=== PATIENT | female | born 1940 | race Caucasian/White ===

== ENCOUNTER 2017-08-05 11:30 | Inpatient (IN) | payer MEDICARE ==
[2017-08-05 12:10] VITALS: BMI 35.2
--- OUTSIDE RECORDS SUMMARY | 2017-08-15 05:45 | XMS | Clinical Summary ---
:1940 Author Organization [facility] Address [address] [place] [address] Phone Care Team Providers Name Role Phone , Primary Care Provider Unavailable Allergies Not on File Current Medications Not on file Active Problems Not on file Social History Tobacco Use Types Packs/Day Years Used Date Never Assessed Sex Assigned at Date Recorded Not on file Last Filed Vital Signs Not on file Plan of Treatment Not on file Results Not on filefrom Last 3 Months
[2017-08-15] MEDS ORDERED: Bacitracin Zinc Ointment 30 gm TUBE ONE (06:21)
[2017-08-15] MEDS ORDERED: Thrombin 5000 UNITS/5 ML VIAL ONE (06:21)
[2017-08-15] MEDS ORDERED: Sodium Chloride 0.9% 10 ML ONE ×2 (06:21→06:58)
[2017-08-15] MEDS ORDERED: Vecuronium 10 MG VIAL ONE ×3 (07:00→11:16)
[2017-08-15] MEDS ORDERED: Phenylephrine 10 MG/NS 250 ML 0 ML ONE (07:01)
[2017-08-15] MEDS ORDERED: Albumin 5% 500 ML ONE (07:01)
[2017-08-15] MEDS ORDERED: Midazolam HCl 2 mg/2 ml Vial ONE (07:06)
[2017-08-15] MEDS ORDERED: Fentanyl 100 MCG/2 ML VIAL ONE ×5 (07:21→15:01)
[2017-08-15] MEDS ORDERED: Lidocaine 2% PF 10 ML AMP (For Epidural Use) ONE (07:35)
[2017-08-15] MEDS ORDERED: PHENYLEPHRINE-NS 100 MCG/ML 10 ML SYRINGE ONE (07:35)
[2017-08-15] MEDS ORDERED: Glycopyrrolate 0.2 MG/ML 5 ML SYRINGE ONE (07:35)
[2017-08-15] MEDS ORDERED: Ondansetron HCl/PF 4 MG/2 ML Vial ONE (07:35)
[2017-08-15] MEDS ORDERED: Propofol 200 MG/20 ML VIAL ONE (07:35)
[2017-08-15] MEDS ORDERED: Dexamethasone 20 MG/5 ML VIAL ONE (07:35)
[2017-08-15] MEDS ORDERED: Meperidine HCl/PF 25 MG/ML VIAL SLOW IVP PRN (09:58)
[2017-08-15] MEDS ORDERED: Ondansetron HCl/PF 4 MG/2 ML Vial IVP PRN (09:58)
[2017-08-15] MEDS ORDERED: Morphine Sulfate 2 MG/ML SYRINGE SLOW IVP PRN ×2 (09:58→13:56)
[2017-08-15] MEDS ORDERED: HYDROmorphone 2 MG/ML VIAL SLOW IVP PRN (09:58)
[2017-08-15] MEDS ORDERED: Promethazine HCl 25 MG/ML VIAL IM PRN ×2 (09:58→13:56)
[2017-08-15] MEDS ORDERED: Promethazine HCl 25 MG/ML VIAL SLOW IVP PRN (09:58)
[2017-08-15] MEDS ORDERED: Mag-Al 1200 mg/1200 mg/30 ML UDCUP PO PRN (13:56)
[2017-08-15] MEDS ORDERED: Fleet Enema 133 ML BOT PR PRN (13:56)
[2017-08-15] MEDS ORDERED: HYDROcodone/Acetaminophen 7.5/325 mg Tablet PO PRN (13:56)
[2017-08-15] MEDS ORDERED: Acetaminophen/Codeine 30-300mg Tablet PO PRN (13:56)
[2017-08-15] MEDS ORDERED: Bisacodyl 10 MG SUPP PR PRN (13:56)
[2017-08-15] MEDS ORDERED: Milk Of Magnesia 30 ML UDCUP PO PRN (13:56)
[2017-08-15] MEDS ORDERED: Acetaminophen 650 MG Suppository PR PRN (13:56)
[2017-08-15] MEDS ORDERED: Nitroglycerin 0.4 MG TAB (25 Tab Bottle) SL PRN (13:59)
[2017-08-15] MEDS ORDERED: Fluticasone Propionate Nasal Spray 16 gm Bottle NASAL PRN (13:59)
--- NOTE | 2017-08-15 15:41 | OP ---
DATE OF SURGERY: 08/15/2017 OR: 12. SURGEON: Adam Blanchard M.D. UMBRELLA REPAIRER: Jhony Marc PA-C. 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 POSTPROCEDURE DIAGNOSES: Multilevel cervical stenosis circumferentially with spinal cord compressio n resulting in myelopathy and nerve root compression resulting in radiculopathy. PROCEDURES: 1. Anterior C5-C6 and C6-C7 diskectomies for decompression of the spinal cord and nerve roots. 2. Preparation of the endplates for placement of interbody spacer, C5-C6 and C6-C7, for arthrodesis . 3. Local bone autograft obtained from same incision, allograft, C5-C6 and C6-C7 for fusion. 4. Anterior cervical plate and screw fixation, C5-C6 and C6-C7. 5. Use of operative microscope for microdissection. 6. Subsequent placement of the patient in the prone position for C5-C6 and C6-C7 laminectomies, par tial facetectomies, and foraminotomies. 7. Placement of screw tyler fixation, C5, C6, C7. 8. Posterolateral arthrodesis with local bone autograft obtained from same incision and allograft f or fusion, C5-C6 and C6-C7 bilaterally. PROCEDURE: After informed consent was obtained from the patient, the patient brought to OR 12. Pro per patient pause and identification was carried out. She was placed under excellent general endotr acheal anesthesia and positioned supine on the operating room table. All appropriate points were pa dded. The right anterior oblique mateus that would allow for approach to the C5, C6, C7 was identifie d. This area was sterilely cleansed, prepared, and draped. Proper patient pause and identification was carried out. The wound was then opened with a combination of sharp, monopolar, and blunt disse ction, and we proceeded lateral to the tracheoesophageal bundle and medial to the right carotid haskins th. We identified the prevertebral layer of deep cervical fascia and the C5, C6, C7 segments were e xposed and the longus colli muscles swept laterally. We then turned our attention to retraction. A localization film confirmed our area of interest. We then performed distraction at C5-C6. Microsc ope was then brought into the field for use of microdissection and we removed the disk at C5-C6 with excellent decompression of the common dural tube and the C6 nerve roots. We then placed interbody spacer of appropriate dimension for arthrodesis packed with local bone autograft obtained from same incision and allograft at C5-C6. Distraction was then removed at C5-C6 and placed at C6-C7 and dist raction at C6-C7 occurred and diskectomy was performed there as well with excellent decompression of the common dural tube and bilateral C7 nerve roots. The endplates were prepared and interbody spac er of appropriate dimension was placed at C6-C7 and this interbody spacer was packed with local bone autograft obtained from same incision and allograft at C6-C7. We were satisfied with our placement of the interbody spacer packed with local bone autograft and allograft for C6-C7 for arthrodesis. We then removed the microscope and anterior cervical plate screw fixation, C5, C6, C7 then occurred with final tightening. The wound was then copiously irrigated and closed in anatomic layers and a d rain was placed in the operative cavity. The patient was kept intubated and positioned in the supin e position. While positioned in supine position, Romero carlos was secured to her skull. We then positioned her prone on the operating room table and secured the head and the cervical spine in felix tral position to allow for approach to the posterior cervical segments of C5, C6, and C7. The wound was sterilely cleansed, prepared, and draped. Proper patient pause and identification was carried out. The wound was then opened with a combination of sharp, monopolar, and blunt dissection. We pr oceeded to the C5, C6, C7 segments with sharp monopolar, and blunt dissection; exposure was satisfac tory. We then confirmed our area of interest with fluoroscopy and gross visualization and we perfor med C5, C6, on top of C7 laminectomies, partial facetectomies and foraminotomies. Holes were drille d for the placement of lateral mass screws at C5, C6, C7 and rods were placed, final tightening occu rred. Copious irrigation occurred. Arthrodesis was done over the posterolateral regions with a loc al bone autograft obtained from same incision and allograft at C5, C6, and C7. Copious irrigation a nd hemostasis occurred. The wound was then closed in anatomic layers following the sprinkling of va ncomycin powder. The patient then emerged from anesthesia.
[2017-08-15] MEDS: Sodium Chloride 0.9% 1,000 ML IV SCH (16:26)
[2017-08-15] MEDS: traMADol HCl 50 MG TAB PO PRN (17:39)
[2017-08-15] MEDS: Carvedilol 6.25 MG TAB PO SCH (19:59)
[2017-08-15] MEDS: TROSPIUM 20 MG TABLET PO SCH (20:32)
[2017-08-15] MEDS ORDERED: Chloraseptic Spray 180 ml Bottle PO PRN (22:27)
[2017-08-16] MEDS: Sodium Chloride 0.9% 1,000 ML IV SCH ×2 (00:53→16:05)
[2017-08-16] MEDS: Acetaminophen 325 MG TAB PO PRN ×4 (04:16→21:07)
[2017-08-16] MEDS: tiZANidine HCl 4 MG TAB PO PRN ×3 (05:57→21:06)
[2017-08-16] MEDS ORDERED: GLUCOSAMINE PO SCH (09:00)
[2017-08-16] MEDS ORDERED: CRANBERRY PO SCH (09:00)
[2017-08-16] MEDS ORDERED: D3 PO SCH (09:00)
[2017-08-16] MEDS ORDERED: BOSWELLIA SERRA T PO SCH (09:00)
--- NOTE | 2017-08-16 09:33 | PRG ---
DATE OF SERVICE: 08/16/2017 Ms. Valero is postoperative 1 from anterior and posterior decompression and fusion, both an teriorly and posteriorly. She is doing well this morning considering how extensive her surgery was and how extensive her pathology was as well. She has as expected dysphagia and dysphonia, but is m oving all extremities to command with stable exam compared to preoperatively. Her drain output is 7 0 mL. I am going to leave this in. We will begin to mobilize her today. I am pleased with how wel l she is doing.
[2017-08-16] MEDS: Cholecalciferol (Vitamin D3) 400 UNITS TAB PO SCH (10:58)
[2017-08-16] MEDS: Lactinex Tablet PO SCH (10:59)
[2017-08-16] MEDS: Ubidecarenone 50 MG CAP PO SCH (10:59)
[2017-08-16] MEDS: Ramipril 5 MG CAP PO SCH (10:59)
[2017-08-16] MEDS: Stress 600 With Zinc 1 TAB PO SCH (10:59)
[2017-08-16] MEDS: Isosorbide Mononitrate 20 MG TAB PO SCH (10:59)
[2017-08-16] MEDS: Magnesium Oxide 400 MG TAB PO SCH (11:00)
[2017-08-16] MEDS: Pravastatin Sodium 20 MG TAB PO SCH (11:00)
[2017-08-16] MEDS: Famotidine 20 MG TAB PO SCH (11:01)
[2017-08-16] MEDS: Loratadine 10 MG TAB PO SCH (11:01)
[2017-08-16] MEDS: Carvedilol 6.25 MG TAB PO SCH ×2 (11:01→21:02)
[2017-08-16] MEDS: traMADol HCl 50 MG TAB PO PRN ×3 (11:02→18:30)
[2017-08-16] MEDS: TROSPIUM 20 MG TABLET PO SCH ×2 (13:43→21:03)
[2017-08-17] MEDS: tiZANidine HCl 4 MG TAB PO PRN ×2 (03:46→20:12)
[2017-08-17] MEDS: Sodium Chloride 0.9% 1,000 ML IV SCH ×2 (05:37→19:54)
[2017-08-17] MEDS: Ramipril 5 MG CAP PO SCH (08:40)
[2017-08-17] MEDS: Isosorbide Mononitrate 20 MG TAB PO SCH (08:40)
[2017-08-17] MEDS: traMADol HCl 50 MG TAB PO PRN ×2 (08:41→14:56)
[2017-08-17] MEDS: Carvedilol 6.25 MG TAB PO SCH ×2 (08:41→19:59)
[2017-08-17] MEDS: Stress 600 With Zinc 1 TAB PO SCH (08:46)
[2017-08-17] MEDS: Ubidecarenone 50 MG CAP PO SCH (08:46)
[2017-08-17] MEDS: TROSPIUM 20 MG TABLET PO SCH ×2 (08:46→20:12)
[2017-08-17] MEDS: Cholecalciferol (Vitamin D3) 400 UNITS TAB PO SCH (08:47)
[2017-08-17] MEDS: Pravastatin Sodium 20 MG TAB PO SCH ×2 (08:47→19:59)
[2017-08-17] MEDS: Loratadine 10 MG TAB PO SCH (08:47)
[2017-08-17] MEDS: Magnesium Oxide 400 MG TAB PO SCH (08:47)
[2017-08-17] MEDS: Lactinex Tablet PO SCH (08:47)
[2017-08-17] MEDS: Famotidine 20 MG TAB PO SCH (08:47)
--- NOTE | 2017-08-17 14:15 | PRG ---
DATE OF SERVICE: 08/17/2017 Jhony Marc PA-C dictating for Dr. Adam Blanchard. SUBJECTIVE: Ms. Valero is now postoperative day #2, having undergone an anterior cervical diskec yogesh and fusion at C5 through C7 with posterior laminectomy and fusion at C5, C6, and C7 levels. Th e patient states that overall she is improved from yesterday. She does have some continued difficul ty with swallowing; however, states this is improved and she is requesting a soft diet. She does co ntinue to have some dry mouth, but otherwise states that she has no arm pain. She states changes in position cause significant amount of posterior neck pain, but states that this is improving. She b elieves that the function in her hands is improving, especially into the bilateral hands. She remai natan at neurologic baseline with good strength in the bilateral upper extremities. Her collar is in place. Her drain output was 80 mL in the last 24 hours and would like to keep this today. We hope that the patient may be ready for discharge as early as tomorrow with home health depending on her c ontinued progress. She will continue to walk as tolerated. I will order soft diet and check back o n her tomorrow. Please call with any changes in patient's neurologic status.
[2017-08-18] MEDS: Sodium Chloride 0.9% 1,000 ML IV SCH ×2 (07:27→20:53)
[2017-08-18] MEDS: Lactinex Tablet PO SCH (08:17)
[2017-08-18] MEDS: Ramipril 5 MG CAP PO SCH (08:17)
[2017-08-18] MEDS: TROSPIUM 20 MG TABLET PO SCH ×2 (08:17→20:50)
[2017-08-18] MEDS: Isosorbide Mononitrate 20 MG TAB PO SCH (08:17)
[2017-08-18] MEDS: tiZANidine HCl 4 MG TAB PO PRN ×3 (08:18→21:04)
[2017-08-18] MEDS: Carvedilol 6.25 MG TAB PO SCH ×2 (08:18→20:50)
[2017-08-18] MEDS: traMADol HCl 50 MG TAB PO PRN ×3 (08:18→21:02)
[2017-08-18] MEDS: Famotidine 20 MG TAB PO SCH (08:19)
[2017-08-18] MEDS: Magnesium Oxide 400 MG TAB PO SCH (09:29)
[2017-08-18] MEDS: Stress 600 With Zinc 1 TAB PO SCH (09:29)
[2017-08-18] MEDS: Loratadine 10 MG TAB PO SCH (09:29)
[2017-08-18] MEDS: Ubidecarenone 50 MG CAP PO SCH (09:29)
[2017-08-18] MEDS: Cholecalciferol (Vitamin D3) 400 UNITS TAB PO SCH (09:29)
--- NOTE | 2017-08-18 11:43 | PRG ---
DATE OF SERVICE: 08/18/2017 Ms. Valero is postoperative day 3 following anterior, posterior decompression and fusion for circ umferential spinal cord compression. We will remove her anterior drain. She continues to notice im provement in regard to her decreased right arm pain and is mobilizing. She has good strength in her upper and lower extremities. I think she needs one more day in the hospital. We will plan for to dismiss her tomorrow after she has had time to work with physical therapy once home health is arrang ed.
[2017-08-18] MEDS: Pravastatin Sodium 20 MG TAB PO SCH (20:49)
[2017-08-19] MEDS: Carvedilol 6.25 MG TAB PO SCH (08:16)
[2017-08-19] MEDS: Famotidine 20 MG TAB PO SCH (08:17)
[2017-08-19] MEDS: Cholecalciferol (Vitamin D3) 400 UNITS TAB PO SCH (08:17)
[2017-08-19] MEDS: Lactinex Tablet PO SCH (08:18)
[2017-08-19] MEDS: Ramipril 5 MG CAP PO SCH (08:18)
[2017-08-19] MEDS: Loratadine 10 MG TAB PO SCH (08:18)
[2017-08-19] MEDS: Magnesium Oxide 400 MG TAB PO SCH (08:18)
[2017-08-19] MEDS: Isosorbide Mononitrate 20 MG TAB PO SCH (08:18)
[2017-08-19] MEDS: traMADol HCl 50 MG TAB PO PRN (08:19)
[2017-08-19] MEDS: Ubidecarenone 50 MG CAP PO SCH (08:19)
[2017-08-19] MEDS: Stress 600 With Zinc 1 TAB PO SCH (08:19)
[2017-08-19] MEDS: tiZANidine HCl 4 MG TAB PO PRN (08:19)
[2017-08-19] MEDS: TROSPIUM 20 MG TABLET PO SCH (08:29)
--- NOTE | 2017-08-19 09:06 | PRG ---
DATE OF SERVICE: 08/19/2017 This is a subsequent inpatient progress note. Ms. Valero is now postoperative day #5, having und ergone an anterior cervical diskectomy and fusion and posterior laminectomy and instrumentation with fusion C5-7. The patient is doing very well at this time. Her swallowing difficulties are minimal and she is able to swallow pills. She remains on a clear liquid diet. She states that her hand an d upper extremity symptoms in regards to pain and numbness and tingling have almost completely resol barney with the exception of some numbness and tingling to the bilateral fingertips in all the fingers. She has been up walking with PT and states that posterior neck pain has also improved over the pas t several days. She would like to go home. The patient remains at neurologic baseline without any deficits. Her incisions have been uncovered and they are clean, dry, and intact with anticipated wo und healing. At this time, the patient is stable for discharge home. We will set up home health pe r the patient request. We will continue postoperative activity restrictions. The patient will foll ow up in outpatient clinic as scheduled and understands to call the office with any concerns prior t o her next followup appointment. The patient is pleased with her outcome postoperatively. The woun d is healing well.
[2017-08-19 17:57] VITALS: BP 107/69; TEMP 98.3
== END 2017-08-19 10:20 | disposition home health service (06) | DRG 473 ==
LOC: SURG A 08-15 05:43 → SJJU 08-15 15:31
PROVIDERS: ADMIT Surgery; ATTEND Surgery
PROC: 0RG20AJ Fusion of 2 or more Cervical Vertebral Joints with Interbody Fusion Device, Posterior Approach, Anterior Column, Open Approach (ICD-10-PCS; principal; 2017-08-15)
DX: M47.12 Other spondylosis with myelopathy, cervical region (principal); I10 Essential (primary) hypertension; M47.22 Other spondylosis with radiculopathy, cervical region; M48.02 Spinal stenosis, cervical region; E78.5 Hyperlipidemia, unspecified; M19.90 Unspecified osteoarthritis, unspecified site; E66.9 Obesity, unspecified; Z68.35 Body mass index [BMI] 35.0-35.9, adult; G47.30 Sleep apnea, unspecified
CPT/HCPCS: 76001; A4216; C1713; C1768; G8978-GP-CK; G8979-GP-CJ; G8987-GO-CK; G8988-GO-CI; J0131; J1100; J1170; J2001; J2250; J2270; J2405; J2704; J3010; J3370; J3490; P9045

== ENCOUNTER 2017-09-30 13:59 | Outpatient (CLI) | payer MEDICARE ==
--- NOTE | 2017-09-30 18:04 | RAD ---
FIVE VIEWS OF THE CERVICAL SPINE: 09/30/2017 COMPARISON: None. HISTORY: Cervical radiculopathy, neck surgery July 2017. 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 There are degenerative changes at the C1-2 articulation with interspace narrowing and subchondral sclerosis. There is prominent multilevel mid-cervical spine facet and uncovertebral osteophyte formation, left greater than right, most prominent at C3-4. There is anterior diskectomy and fusion hardware present at C5-6/C6-7. There is posterior fusion hardware including bilateral pedicle screws and vertically oriented interl ocking rods involving C4, C5, and C6 levels. No evidence for hardware failure. No prevertebral sof t tissue swelling. There is C4-5 disk space narrowing with degenerative endplate change and anterior osteophyte formati on. Bilateral laminectomy changes are noted at C4, C5, and C6. Cervical vertebral body height and alignment appears normal on frontal and lateral imaging. No prev ertebral soft tissue swelling is evident. The dens appears intact on the open mouth odontoid view a nd Fuch's view. C1-2 articulation appears normal. IMPRESSION: Extensive multilevel prior postoperative change. No acute osseous abnormality. POS: [facility]
== END 2017-09-30 14:00 | disposition home or self-care (01) ==
LOC: TBSIIMAG 13:59
PROVIDERS: ATTEND Surgery
DX: M54.12 Radiculopathy, cervical region (principal)
CPT/HCPCS: 72040

== ENCOUNTER 2019-12-12 11:02 | Inpatient (IN) | payer MEDICARE ==
[2019-12-12] MEDS ORDERED: Iopamidol-370 76% 500 ML 1 ML ONE (11:09)
[2019-12-12] MEDS ORDERED: cefTRIAXone\\ROCEPHIN 2 GM VIAL ONE (11:34)
[2019-12-12 11:39] LABS: #Lymphocytes 2.3 thou/uL (1.20-3.40); #Monocytes 1.1 thou/uL (0.11-0.59); #Neutrophils 13.4 thou/uL (1.40-6.50); %Basophils 0.2 % (0.0-1.0); %Eosinophils 0.3 % (0.0-10.0); %Lymphocytes 13.8 % (21.0-51.0); %Monocytes 6.4 % (0.0-10.0); %Neutrophils 79.2 % (42.0-75.0); Hemoglobin 10.9 g/dL (12.0-16.0); Mean Corpuscular HGB CONC 35.5 g/dL (32.0-36.0); Mean Corpuscular Hemoglobin 33.6 pg (27.0-31.0); Mean Corpuscular Volume 94.6 fL (78.0-98.0); Mean Platelet Volume 6.8 fL (7.4-10.4); Platelet Count 121 thou/uL (130-400); RBC Distribution Width 11.5 % (11.5-14.5); Red Blood Cell (RBC) Count 3.23 mill/uL (4.20-5.40); White Blood Cell (WBC) Count 16.9 thou/uL (4.8-10.8)
[2019-12-12 11:45] LABS: Bacteria/HPF 2+ HPF (None Seen); Bilirubin Negative (Negative); Blood, Urine Trace (Negative); Clarity Turbid (Clear); Glucose, Urine (Dipstick) 50 mg/dL (Negative); Leukocyte 500 Leu/uL (Negative); Nitrite 1+ (Negative); Protein, Urine (Dipstick) 10 mg/dL (Neg-Trace); Squamous Epithelial 0-3 HPF (0-3); Urobilinogen Normal mg/dL (Less than 2); WBC/HPF 21-50 HPF (0-3)
[2019-12-12 11:51] LABS: Amphetamine Not Detected (NotDetected); Barbiturates Screen Not Detected (NotDetected); Benzodiazepine Screen Not Detected (NotDetected); Cocaine Metabolite Screen Not Detected (NotDetected); Medtox Control Line Valid? VALID (VALID); Medtox Reader # READER 4; Methadone Not Detected (NotDetected); Methamphetamine Not Detected (NotDetected); Opiate Screen Not Detected (NotDetected); Oxycodone Screen Not Detected (NotDetected); Phencyclidine (PCP) Not Detected (NotDetected); THC/Cannabinoid Screen Not Detected (NotDetected); Tricyclic Screen Not Detected (NotDetected)
[2019-12-12 11:51] LABS: INR-International Normal Ratio 1.2; Prothrombin Time 14.7 SEC (12.0-14.7)
[2019-12-12] MEDS ORDERED: Cefepime 2 GM VIAL ONE (11:51)
[2019-12-12 11:53] LABS: PTT 19.7 SEC (22.9-36.1)
--- NOTE | 2019-12-12 11:53 | RAD ---
EXAM: Single view of the chest HISTORY: Altered mental status and respiratory distress COMPARISON: 12/08/2019 FINDINGS: Single view of the chest shows a normal sized cardiomediastinal silhouette. There is no faheem dence of consolidation, mass, or pleural effusion. Postsurgical changes are seen in the spine. IMPRESSION: No evidence of acute cardiopulmonary disease
[2019-12-12 11:58] LABS: Acetaminophen Less than 6.0 mcg/mL (10.0-30.0); Alcohol Less than 10 mg/dL (Less than 10); Salicylate Less than 8.0 mg/dL (15.0-30.0)
[2019-12-12 12:21] LABS: ALT (SGPT) 12 U/L (8-55); AST (SGOT) 12 U/L (5-34); Alkaline Phosphatase 38 U/L (40-110); Anion Gap 12 mmol/L (10-20); BUN (Urea Nitrogen) 29 mg/dL (9.8-20.1); Bilirubin, Total 0.7 mg/dL (0.2-1.2); Calc. Creatinine Clearance 0 mL/min (70-130); Calcium 7.9 mg/dL (7.8-10.44); Carbon Dioxide 24 mmol/L (23-31); Chloride 100 mmol/L (98-107); Estimated GFR-MDRD Greater than 90; Globulin 1.9 g/dL (2.4-3.5); Glucose 142 mg/dL (83-110); Potassium 3.6 mmol/L (3.5-5.1); Protein, Total 4.9 g/dL (6.0-8.3); Sodium 132 mmol/L (136-145)
--- NOTE | 2019-12-12 12:59 | CT ---
EXAM: CT brain without contrast HISTORY: Altered mental status. Recent brain tumor resection COMPARISON: None TECHNIQUE: Multiple contiguous axial images were obtained and a CT of the brain without contrast. FINDINGS: Postsurgical changes are seen in the right calvarium. There is a heterogeneous appearance o f the right parieto-occipital lobe. There is a 4.3 cm masslike region in the right parietal lobe with surrounding vasogenic edema. There is thickening of the dura just beneath the craniotomy site. T here is no evidence of hydrocephalus, intracranial hemorrhage, or significant extra-axial fluid collection. The calvarium and overlying soft tissues are unremarkable. The visualized paranasal sinuses and masto id air cells are well aerated. IMPRESSION: Postsurgical changes of the right calvarium with likely residual mass in the right pariet al lobe.
--- NOTE | 2019-12-12 13:39 | PDOC.FPRHP ---
- History of Present Illness Chief Complaint: AMS History of Present Illness: 79YOF with a PMH significant for a recent surgical resection of a glioblastoma on Nov 27, who presented from [facility] for hypoxia & labile BPs noted there by the staff this AM. Per the her vitals were noted to be abnormal this AM and the rehab staff stated they could not handle it so they sent her to the ER for further evaluation. Upon arrival pt had her supplemental oxygen rapidly weaned to room air with normal stats. Her blood pressure remained stable. Denies any recent sx including chills, fever, cough, abdominal pain. Pt has been working with PT/OT at rehab - states she has not been progressing well and has not regained function of her lower extremities to ambulate since her operation. also concerned about patient's depression. Says she often talks about the end of life. Patient and deny any attempts to end her life resulting in her abnormal vitals this AM. ED Course: Cefepime & Rocephin IV - Allergies/Adverse Reactions Allergies Allergy/AdvReac Type Severity Reaction Status Date / Time No Known Allergies Allergy Verified 12/12/19 15:42 - Home Medications Medication Instructions Recorded Confirmed Type Aspirin [Aspir-Low] 162 mg PO DAILY 08/05/17 12/12/19 History Carvedilol 1 tab PO BID 08/05/17 12/12/19 History Fluticasone Propionate [Flonase 1 puff NASAL DAILY 08/05/17 12/12/19 History Nasal [place]] Loratadine [Claritin] 1 tab PO DAILY 08/05/17 12/12/19 History Citalopram [CeleXA] 10 mg PO DAILY 12/12/19 12/12/19 History Dexamethasone 4 mg PO DAILY 12/12/19 12/12/19 History Furosemide 40 mg PO DAILY 12/12/19 12/12/19 History Glucosamine/D3/Boswellia Judith 1 each PO DAILY 12/12/19 12/12/19 History [Osteo Bi-Flex Tablet] Insulin Detemir [Levemir] 8 units SQ QAM 12/12/19 12/12/19 History Lisinopril 40 mg PO DAILY 12/12/19 12/12/19 History Methylphenidate HCl 5 mg PO DAILY 12/12/19 12/12/19 History Multivitamin With Minerals 1 tablet PO DAILY 12/12/19 12/12/19 History [Multivitamins with Minerals] Polyethylene Glycol 3350 [Miralax] 17 gm PO DAILY 12/12/19 12/12/19 History Pravastatin Sodium [Pravachol] 10 mg PO HS 12/12/19 12/12/19 History Ranitidine HCl 150 mg PO DAILY 12/12/19 12/12/19 History Ranolazine [Ranolazine ER] 1,000 mg PO BID 12/12/19 12/12/19 History Sodium Chloride 2 gm PO BID 12/12/19 12/12/19 History Ubidecarenone [Coenzyme Q10] 100 mg PO DAILY 12/12/19 12/12/19 History levETIRAcetam [Levetiracetam] 1,500 mg PO BID 12/12/19 12/12/19 History - History PMHx: Hx of glioblastoma s/p recent resection, depression PSHx: Resection of glioblastoma (11/27/19 w/ Dr. Blanchard @ [facility]) FHx: Non contributory Social: Lives at home with . Has been at [facility] rehab for the last week. No tobacco, EtOH or drugs. PCP: Dr. Lauren Summers - Review of Systems General: reports: weight/appetite/sleep changes, fatigue. denies: fever/chills Eyes: reports: other (no scotomas). denies: vision changes ENT: denies: nasal congestion, rhinorrhea Respiratory: denies: cough, shortness of breath Cardiovascular: denies: chest pain, edema Gastrointestinal: reports: nausea. denies: vomiting, diarrhea, abdominal pain Genitourinary: reports: other (hematuria). denies: dysuria Skin: denies: rashes, lesions Musculoskeletal: denies: pain, arthritis/arthralgias Neurological: reports: weakness. denies: numbness Psychological: reports: depression. denies: anxiety - Vital signs BP: 126/67 HR: 71 RR: 13 Tmax: Pox: 99% on RA Wt: 85kg - Physical Exam Constitutional: NAD, awake, alert and oriented -Constitutional: Lays with her eyes closed most of exam, opens spontaneously HEENT: PERRLA, EOMI, MMM Neck: supple, FROM Chest: no-tender to palpation Heart: RRR, normal S1/S2, no murmurs/rubs/gallops, pulses present Lungs: CTAB, no respiratory distress, good air movement, no rales/rhonchi, no wheezing Abdomen: soft, bowel sounds present Musculoskeletal: normal structure, normal tone, ROM grossly normal -Neurological: 2/5 strength in lower extremities, able to move toes, normal sensation Skin: no rash/lesions, capillary refill <2 seconds Heme/Lymphatic: no unusual bruising or bleeding, no purpura Psychiatric: normal mood and affect, good judgment and insight, intact recent and remote memory FMR H&P: Results - Labs Result Diagrams: 12/12/19 18:51 12/12/19 11:20 Lab results: WBC 16.9 thou/uL (4.8-10.8) H 12/12/19 11:19 Hgb 10.9 g/dL (12.0-16.0) L 12/12/19 11:19 Hct 30.6 % (36.0-47.0) L 12/12/19 11:19 MCV 94.6 fL (78.0-98.0) 12/12/19 11:19 Plt Count 121 thou/uL (130-400) L 12/12/19 11:19 Neutrophils % 79.2 % (42.0-75.0) H 12/12/19 11:19 Sodium 132 mmol/L (136-145) L 12/12/19 11:20 Potassium 3.6 mmol/L (3.5-5.1) 12/12/19 11:20 Chloride 100 mmol/L (98-107) 12/12/19 11:20 Carbon Dioxide 24 mmol/L (23-31) 12/12/19 11:20 BUN 29 mg/dL (9.8-20.1) H 12/12/19 11:20 Creatinine 0.58 mg/dL (0.6-1.1) L 12/12/19 11:20 Glucose 142 mg/dL (83-110) H 12/12/19 11:20 Lactic Acid 2.1 mmol/L (0.5-2.2) 12/12/19 11:19 Calcium 7.9 mg/dL (7.8-10.44) 12/12/19 11:20 Total Bilirubin 0.7 mg/dL (0.2-1.2) 12/12/19 11:20 AST 12 U/L (5-34) 12/12/19 11:20 ALT 12 U/L (8-55) 12/12/19 11:20 Alkaline Phosphatase 38 U/L (40-110) L 12/12/19 11:20 Ammonia 24 umol/L (18-72) 12/12/19 11:19 B-Natriuretic Peptide 19.6 pg/mL (0-100) 12/12/19 11:20 Serum Total Protein 4.9 g/dL (6.0-8.3) L 12/12/19 11:20 Albumin 3.0 g/dL (3.4-4.8) L 12/12/19 11:20 Urine Ketones Negative mg/dL (Negative) 12/12/19 11:18 Urine Blood Trace (Negative) A 12/12/19 11:18 Urine Nitrite 1+ (Negative) A 12/12/19 11:18 Ur Leukocyte Esterase 500 Nithya/uL (Negative) A 12/12/19 11:18 Urine RBC 4-6 HPF (0-3) A 12/12/19 11:18 Urine WBC 21-50 HPF (0-3) A 12/12/19 11:18 Ur Squamous Epith Cells 0-3 HPF (0-3) 12/12/19 11:18 Urine Bacteria 2+ HPF (None Seen) A 12/12/19 11:18 - EKG Interpretation EK lead EKG shows normal sinus rhythm, Rate (beats per minute): 64, Conduction normal, ST, T waves, [place] normal, nonspecific ST and T wave abnormality. - Radiology Interpretation CT scan - head Status: report reviewed by me (Postsurgical changes of the right calvarium with likely residual mass in the right pariet al lobe.) Chest x-ray Status: report reviewed by me (No evidence of acute cardiopulmonary disease) FMR H&P: A/P - Problem List (1) Metastatic cancer Current Visit: Yes Status: Acute Code(s): C79.9 - SECONDARY MALIGNANT NEOPLASM OF UNSPECIFIED SITE (2) Urinary tract infection associated with catheterization of urinary tract Current Visit: Yes Status: Acute Code(s): T83.511A - I/I REACT D/T INDWELLING URETHRAL CATHETER, INIT; N39.0 - URINARY TRACT INFECTION, SITE NOT SPECIFIED (3) Sepsis Current Visit: Yes Status: Acute Code(s): A41.9 - SEPSIS, UNSPECIFIED ORGANISM (4) Pulmonary embolism Current Visit: Yes Status: Acute Code(s): I26.99 - OTHER PULMONARY EMBOLISM WITHOUT ACUTE COR PULMONALE (5) Lung nodule seen on imaging study Current Visit: Yes Status: Acute Code(s): R91.1 - SOLITARY PULMONARY NODULE (6) Depression Current Visit: Yes Status: Acute Code(s): F32.9 - MAJOR DEPRESSIVE DISORDER , SINGLE EPISODE, UNSPECIFIED (7) Weakness Current Visit: Yes Status: Acute Code(s): R53.1 - WEAKNESS (8) Hyponatremia Current Visit: Yes Status: Acute Code(s): E87.1 - HYPO-OSMOLALITY AND HYPONATREMIA - Plan Sepsis 2/2 CAUTI - Urine collected yesterday showed G- rods - Urine today again dirty - Treated with cefepime and rocephin in ED - transitioned to rocephin 1g daily - Strict I/O - Amaya replaced yesterday Pulmonary Embolism - 2/2 malignant embolism vs post surgical complication - Neurosurgery consulted: initiating therapeutic heparin per protocol - stable cardiopulmonary status currently - Admit to CCU Brain Mass - Glioblastoma resection on Nov 27, noted to be malignant per pt - Residual LE weakness and mental status changes per - Scheduled to follow up with onc for possible radiation, yet to be determined - Neurosurgery consulted: Head CT noting new mass, discussing new findings w/ pt and Lung Mass - Seen on CTA chest - Previously noted, pt and aware - Outpt PET scan scheduled for next week Hyponatremia - Likely 2/2 to poor PO intake - Encourage increased PO, consider dietary consult Depression - Increased post operatively - Will continue recently started citalopram - Palliative care consulted Likely Hypertension/CHF - did not note hx of these but suspected based on home rx - Will resume home rx for now and confirm medical hx IVF: SL VTE: Therapeutic heparin Diet: Regular Code: Full Dispo: Admit inpt to CCU for heparin drip and IV abx. ELOS >48hr. PCP: Dr. Aguilar FMR H&P: Upper Level - Pertinent history 79YOF with a PMH significant for a recent surgical resection of a glioblastoma on Nov 27, who presented from [facility] rehab for hypoxia & labile BPs noted there by the staff this AM. Per the her vitals were noted to be abnormal this AM and the rehab staff stated they could not handle it so they sent her to the ER for further evaluation. Upon arrival pt had her supplemental oxygen rapidly weaned to room air with normal stats. Her blood pressure remained stable. Denies any recent sx including chills, fever, cough, abdominal pain. Pt has been working with PT/OT at rehab - states she has not been progressing well and has not regained function of her lower extremities to ambulate since her operation. also concerned about patient's depression. Says she often talks about the end of life. Patient and deny any attempts to end her life resulting in her abnormal vitals this AM. - Pertinent findings CXR: NAF Head CT: CTA w/ & w/o contrast: small B/L pulmonary emboli w/ a small, spiculated left upper lung nodule noted WBC 16.9 Hgb 10.9 Plts 121 lactate 2.1 UA: dirty REVIEW OF SYSTEMS: Gen: no fever, chills, or sweats Neuro: no numbness/tingling, no weakness, denies headache Eyes: no visual changes ENT: no hearing changes, no sore throat, no runny nose Resp: no cough, no SOB, no wheeze Card: denies chest pain, no palpitations GI: no N/V/D, no abdominal pain : no dysuria, no hematuria MSK: no myalgias, no joint pain/stiffness Heme: no easy bruising/bleeding, no blood thinners Skin: no rash, no erythema Vitals: BP: 126/67 HR: 71 RR: 13 Tmax: 100.4F Pox: 99% on RA Wt: 87kg PHYSICAL EXAMINATION: General: NAD, alert and oriented x3 HEENT: PERRLA, EOMI, normal sclera, oropharynx without erythema but scrapable white plaques noted all over oral cavity Neck: Supple. Full ROM. Heart/Cardiovascular System: RRR, Cap refill < 3 seconds, no rub, no murmur Lungs/Respiratory System: clear to auscultation bilaterally. No increased work of breathing. Room air. Abdomen/Gastro-Intestinal System: no abdominal tenderness, normal bowel sounds, no masses, no organomegaly Extremities: Warm extremities. No cyanosis or edema. Neuro: 5/5 strength in B/L UEs w/ . CN 2-12 grossly intact Psychiatry: Awake, Alert and cooperative with exam Skin: No lesions, rashes, or ulcers noted Musculoskeletal: moved all extremities - Plan Date/Time: 12/12/19 1338 I, Pretty Murguia, have evaluated this patient and agree with findings/plan as outlined by dental intern resident. Pertinent changes/additions are listed here. 79YOF with a PMH significant for a recent surgical resection of a glioblastoma on Nov 27, who presented from [facility] rehab for reported hypoxia & labile BPs who was found to be septic 2/2 a CAUTI with B/L pulmonary emboli. Sepsis 2/2 CAUTI - Urine collected yesterday at rehab + for GNRs. Cx pending. Repeat urine & blood Cxs also obtained on presentation as UA was dirty & patient had a WBC of 16.9 with a Tmax of 100.4F. Was given IV Cefepime & Rocephin. - Will continue IV Rocephin only pending Cx results & sensitivities. - Will continue to trend WBC. - Tylenol PRN for fever/pain Pulmonary Embolism - Multiple risk factors including malignancy & immobilization since recent brain surgery. Confirmed on CTA obtained in ED. - Neurosurgery consulted & initiated therapeutic heparin per protocol w/ Q6H coags. Transitioning to CCU per their recs as well but patient is actually stable from a cardiopulmonary status currently. Hx Glioblastome s/p resection w/ new brain Mass - s/p Glioblastoma resection on 11/27/19 which was noted to be malignant per patient and her . - Per was scheduled to follow up with onc for possible radiation as an outpatient but recent surgery has delayed this. - Neurosurgery consulted from the ED and on board. Head CT noted a new mass & NS discussed these new findings w/ pt and . Appreciate involvement in patient's care. - Palliative care consulted to see patient & tomorrow if possible. Left upper Lung nodule - Patient and aware of this prior to admission. Seen again today on CTA chest done in ED. - Most likely malignant as described as being spiculated. DDX includes new primary malignancy vs. metastatic dz. Will consider oncology consult but will await further recs from NS and meet with family and palliative care first. Oral candidiasis - Noted on PE. Will start on Nystatin SSW QID. Hyponatremia - Na 132 on admission. Likely 2/2 to poor PO intake and/or SIADH associated with recent neurosurgery. - Will encourage increased PO intake & consider dietary consult in the AM. - Resume PO Na Chloride per NS. - Continue to trend. Normocytic Anemia - Hgb of ~10 on admission. Will continue to trend. Thrombocytopenia: - Plts low at 121 on admission. Will continue to trend, pancho. in setting of starting heparin to monitor for HIIT. Depression - Will continue recently started citalopram. - Palliative care consulted by NS. Suspected Hypertension - Assumed based on [facility] paperwork & home meds. Will resume for now and review history and confirm all medical problems in the AM. Supsected CHF - See plan above. IVFs: SL ABx: Rocephin (12/12) VTE PPX: Therapeutic heparin GI PPX: Protonix Diet: Regular Code: Full Dispo: Will admit to the CCU per NS recs for heparin drip and IV abx for PE & CAUTI. ELOS >48hr pending clinical course. PCP: Dr. Aguilar Addendum - Attending - Attending Attestation Date/Time: 12/12/192102 I personally evaluated the patient at 1815 and discussed the management with Dr. Fernandez/Blade. I agree with the History, Examination, Assessment and Plan documented above with any addition or exceptions noted below. Patient with an episode of hypotension, tachypnea and hypoxia resulting in tranfer from inpt rehab to ER. CAUTI- Rocephin and urine cx Small bilateral PEs- to ICU for monitoring due to recent neurosurg and need for anticoag- O2 to keep sats >92% glioblastoma- appears aggressive with a new lesion per NS- appreciate their input Will need to discuss prognosis and goals of care with patient.
[2019-12-12 14:30] LABS: Lactic Acid 1.7 mmol/L (0.5-2.2)
[2019-12-12] MEDS ORDERED: Acetaminophen 325 MG TAB PO PRN (15:42)
[2019-12-12] MEDS ORDERED: Ondansetron ODT 4 MG TAB PO PRN (15:42)
[2019-12-12] MEDS ORDERED: Dexamethasone 10 MG in Sodium Chloride 0.9% 50 ML IVPB SCH (17:00)
[2019-12-12] MEDS ORDERED: Pantoprazole 40 MG VIAL IVP SCH (17:00)
--- NOTE | 2019-12-12 18:08 | CT ---
CTA OF THE CHEST WITH CONTRAST: 12/12/19 COMPARISON: None. HISTORY: Postop brain surgery. High blood pressure and decreased oxygen saturation. TECHNIQUE: Multiple contiguous axial images were obtained in a CT of the chest with contrast per pulmonary embol ism protocol. 3D oblique MIP reformats and direct coronal reformats were performed. FINDINGS: Small filling defects are seen in the bilateral pulmonary arteries consistent with small bilateral pu lmonary emboli. It is most prominent in the right lower lobe. The heart is normal in size without foc al cardiac abnormality. No shift of the interventricular septum is seen. No hilar or mediastinal lymp hadenopathy is seen. There is a spiculated 1.5 cm nodule in the left upper lobe. No pneumothorax or pleural effusion are s een. Atelectasis is seen in the lung bases. Degenerative changes are seen in the spine. The visualized subdiaphragmatic structures are unremarkab le. The patient is status post cholecystectomy. The chest wall soft tissues are unremarkable. IMPRESSION: 1. Small bilateral pulmonary emboli. 2. Spiculated left upper lobe nodule. A PET CT is recommended to evaluate for hypermetabolic act ivity. The patient's nurse is notified of the finding at 5:55 p.m. on 12/12/19.
--- NOTE | 2019-12-12 18:13 | CON ---
DATE OF CONSULTATION: 12/12/2019 This is a 50-minute initial patient evaluation of which greater than 50% of the exam was spent in counseling and coordinating the patient's care remainder of the exam was spent in care of review of patient's medical records and appropriate imaging studies. CHIEF COMPLAINT: Fatigue and malaise with hypoxic event with newly found right occipital lobe brain tumor. HISTORY OF PRESENT ILLNESS: Ms. 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 The patient had hyponatremia postoperatively but overall had done well in regard to her surgery. She had previously been [facility]. I have been in close contact with the patient's son and who are very active in her care and they noticed that the patient has had a several day history of progression of significant fatigue. The patient is on 1500 mg of Keppra twice a day to prevent seizures that she is on a very high risk for seizure-like activity secondary to her temporal mass resection. Apparently, earlier today around 07:30, the patient had episode of low blood pressure and tachypnea, and eventually was brought to [facility] from [facility] for these reasons. A medical workup has been ongoing and the patient has been found to have urinary tract infection. A head CT was obtained that shows no intracranial hemorrhage, however, does show newly found 4 cm right occipital lobe lesion likely consistent with GBM. This is a new lesion and does not represent residual tumor, but rather new tumor growth given the aggressive pathology. I should note that the patient's craniotomy and subsequent postoperative care was at [facility] in [place]. The patient was initiated on Lovenox postoperatively given high risk of DVT secondary to brain tumor pathology. CTA of the chest with and without contrast, PE protocol has been ordered secondary to the patient's tachypnea and hypotension. PHYSICAL EXAMINATION: The patient is resting comfortably. Her GCS is 14 as she is intermittently confused. She opens her eyes easily and does appear to recognize me as we have been in close contact given her recent brain surgery. She follows commands in all extremities, although it is much slower to move the left lower extremity and this may be weaker compared to her immediate postoperative exam, however, she has always had some weakness on to the left, this was improving postoperatively. Her pupils are equal, round, and reactive, though the left is more briskly reactive than the right has sluggishly reactive. She does not appear to have any horizontal nystagmus on exam. She believes it is Saturday or Saturday, though she understands it is 2019. She believes she is still at [facility]. Her cranial incision is healing well with minimal scabbing there are ida still present and it appears as though it is healing well. IMPRESSION DIAGNOSES: 1. Status post right temporal craniotomy 11/27/2019 at [facility], now with new evidence of new tumor in the right occipital lobe. 2. Hypoxia, tachypnea, and low blood pressure, concern for pulmonary embolism. PLAN: At this time, I have discussed the patient's case and imaging with Dr. Blanchard. We will follow up on the patient's CTA of the chest results. This newly found occipital lobe lesion is very concerning. It does prove to the aggression of what the patient's pathology in regard to her GBM tumor. I have let the patient know her new diagnosis as well as I spoken at great length with her via phone as he is already left the hospital. At this time, there is not a role for neurosurgical intervention including new tumor resection and we did discuss this. The patient's does understand. The patient also understands. I should say in the patient's own words, "is it okay if I just give up?" and I have let her know that this is something that we can greatly discuss with her family and we will get palliative care involved. I have also let the patient's know that she feels this way and he states that she has been feeling this way for the past several days. Certainly, this very disappointing news. Plan to have a family meeting tomorrow once the patient's has returned. Medical colleagues have graciously admitted the patient and they will continue care with the patient's medical workup. We will likely remove the patient's cranial sutures tomorrow as well. Please call with any changes in the patient's neurologic status, otherwise, the patient is neurologically stable and no intermittently confused. She does have slight amount of hyponatremia which she suffered from Will nicho Loza, although at 132 her sodium level much improved as she was around 122 pre and immediately postoperatively. I have again consulted Palliative Care, but we will follow up on the patient. I should note that her is very appreciative of her phone call in care. Again, we will attempt to contact him tomorrow. Job ID: [id number]
[2019-12-12] MEDS ORDERED: Heparin 10,000 UNITS/ 10 ML VIAL SLOW IVP SCH (18:30)
[2019-12-12] MEDS ORDERED: Heparin 25,000 units/D5W 500 ML IVPB SCH (18:30)
[2019-12-12 19:01] LABS: Hemoglobin 10.4 g/dL (12.0-16.0); Platelet Count 117 thou/uL (130-400)
[2019-12-12 19:09] LABS: INR-International Normal Ratio 1.2; PTT 25.2 SEC (22.9-36.1); Prothrombin Time 14.9 SEC (12.0-14.7)
[2019-12-12] MEDS ORDERED: hydrALAZINE 20 MG/ML VIAL SLOW IVP PRN (21:12)
[2019-12-12] MEDS: Carvedilol 6.25 MG TAB PO SCH (21:43)
[2019-12-12] MEDS: levETIRAcetam 500 MG TAB PO SCH (21:43)
[2019-12-12] MEDS: Pravastatin Sodium 20 MG TAB PO SCH (21:43)
[2019-12-12] MEDS: cefTRIAXone\\ROCEPHIN 1 GM in Sodium Chloride 0.9% 100 ML IVPB SCH (21:44)
[2019-12-12] MEDS: Nystatin 500,000 UNITS/5 ML UDCUP SSW SCH (21:44)
[2019-12-12] MEDS: Sodium Chloride 1 GM TAB PO SCH (21:46)
[2019-12-13] MEDS: Dexamethasone 4 MG in Sodium Chloride 0.9% 50 ML IVPB SCH ×4 (00:50→18:35)
[2019-12-13 02:06] LABS: #Lymphocytes 0.8 thou/uL (1.20-3.40); #Monocytes 0.3 thou/uL (0.11-0.59); #Neutrophils 12.5 thou/uL (1.40-6.50); %Basophils 0.2 % (0.0-1.0); %Eosinophils 0.2 % (0.0-10.0); %Lymphocytes 5.7 % (21.0-51.0); %Monocytes 1.9 % (0.0-10.0); %Neutrophils 91.9 % (42.0-75.0); Hemoglobin 10.2 g/dL (12.0-16.0); Mean Corpuscular HGB CONC 34.8 g/dL (32.0-36.0); Mean Corpuscular Hemoglobin 32.6 pg (27.0-31.0); Mean Corpuscular Volume 93.7 fL (78.0-98.0); Mean Platelet Volume 6.8 fL (7.4-10.4); Platelet Count 120 thou/uL (130-400); RBC Distribution Width 11.6 % (11.5-14.5); Red Blood Cell (RBC) Count 3.12 mill/uL (4.20-5.40); White Blood Cell (WBC) Count 13.6 thou/uL (4.8-10.8)
[2019-12-13 02:18] LABS: PTT 183.3 SEC (22.9-36.1)
[2019-12-13 02:20] LABS: Anion Gap 11 mmol/L (10-20); BUN (Urea Nitrogen) 27 mg/dL (9.8-20.1); Calc. Creatinine Clearance 116 mL/min (70-130); Calcium 8.1 mg/dL (7.8-10.44); Carbon Dioxide 24 mmol/L (23-31); Chloride 102 mmol/L (98-107); Estimated GFR-MDRD Greater than 90; Glucose 184 mg/dL (83-110); Sodium 133 mmol/L (136-145)
--- NOTE | 2019-12-13 05:46 | PDOC.FM ---
- Subjective Subjective: Pt remains fairly unchanged from yesterday. Overnight her oxygen saturations were WNL, blood pressures stable. She denies shortness of breath. Otherwise pt denies pain, remains with L sided weakness. Pt states over the last 2 weeks she has "wanted to give up". - Objective Vital Signs & Weight: Vital Signs (12 hours) Temp BP Pulse Ox 12/13/19 03:00 98 F 12/13/19 00:00 98.4 F 12/12/19 21:43 123/62 12/12/19 20:00 98.4 F 96 12/12/19 18:30 100 Weight Weight 87.3 kg Most Recent Monitor Data Heart Rate from ECG 63 NIBP 129/70 NIBP BP-Mean 89 Respiration from ECG 12 SpO2 98 I&O: 12/11/19 12/12/19 12/13/19 06:59 06:59 06:59 Intake Total 150 Output Total 605 Balance -455 Result Diagrams: 12/13/19 01:50 12/13/19 01:50 Phys Exam - Physical Examination Constitutional: NAD HEENT: PERRLA, moist MMs Respiratory: no wheezing, clear to auscultation bilateral Cardiovascular: RRR, no significant murmur Gastrointestinal: soft, non-tender Musculoskeletal: no edema, pulses present Strenght 4/5 in L extremities otherwise normal exam Psychiatric: A&O x 3 Deviation from normal: Flat affect lucid thinking, thought process Dx/Plan (1) Depression Code(s): F32.9 - MAJOR DEPRESSIVE DISORDER, SINGLE EPISODE, UNSPECIFIED Status : Acute (2) Hyponatremia Code(s): E87.1 - HYPO-OSMOLALITY AND HYPONATREMIA Status: Acute (3) Lung nodule seen on imaging study Code(s): R91.1 - SOLITARY PULMONARY NODULE Status: Acute (4) Metastatic cancer Code(s): C79.9 - SECONDARY MALIGNANT NEOPLASM OF UNSPECIFIED SITE Status: Acute (5) Pulmonary embolism Code(s): I26.99 - OTHER PULMONARY EMBOLISM WITHOUT ACUTE COR PULMONALE Status : Acute (6) Sepsis Code(s): A41.9 - SEPSIS, UNSPECIFIED ORGANISM Status: Acute (7) Urinary tract infection associated with catheterization of urinary tract Code(s): T83.511A - I/I REACT D/T INDWELLING URETHRAL CATHETER, INIT; N39.0 - URINARY TRACT INFECTION, SITE NOT SPECIFIED Status: Acute (8) Weakness Code(s): R53.1 - WEAKNESS Status: Acute - Plan Plan: CAUTI Sepsis - resolved - Urine collected yesterday showed G- rods - Urine today again dirty - Treated with cefepime and rocephin in ED - transitioned to rocephin 1g daily - Strict I/O - Amaya replaced yesterday Pulmonary Embolism - 2/2 malignant embolism vs post surgical complication. Appears pt failed lovenox in the setting of prophylaxis. - Neurosurgery consulted: continue therapeutic heparin per protocol, repeat PTT' s pending - stable cardiopulmonary status currently - Admit to CCU Brain Mass - Glioblastoma resection on Nov 27, noted to be malignant per pt - Residual LE weakness and mental status changes per - Scheduled to follow up with onc for possible radiation, yet to be determined - Neurosurgery consulted: Head CT noting new mass. NS had discussion with family about mass, at this time surgery not indicated. NS will have meeting with family concerning mass, further care and pt's wishes. Palliative is on board as well. Lung Mass - Seen on CTA chest - Previously noted, pt and aware - Outpt PET scan scheduled for next week Hyponatremia - Likely 2/2 to poor PO intake - Encourage increased PO, consider dietary consult - NS states at [employer] her Na was 122, much improvement from prior. Depression - Increased post operatively - Will continue recently started citalopram - Palliative care consulted Likely Hypertension/CHF - did not note hx of these but suspected based on home rx - Will resume home rx for now and confirm medical hx IVF: SL VTE: Therapeutic heparin Diet: Regular Code: Full Dispo: Admit inpt to CCU for heparin drip and IV abx. ELOS >48hr. PCP: Dr. Aguilar Addendum - Attending - Attending Attestation Date/Time: 12/13/19 1302 I personally evaluated the patient at 0800 and discussed the management with Dr. Bashir I agree with the History, Examination, Assessment and Plan documented above with any addition or exceptions noted below. Glioblastoma, highly aggressive small B PE- on heparin gtt Gram neg UTI with possible sepsis- on Rocephin Discussed with patient her goals of care and she desires comfort/hospice care. But she wants to talk to her family before we proceed with CM consult for hospice evaluation.
--- NOTE | 2019-12-13 07:12 | CT ---
PRELIMINARY REPORT/[facility]/AFTER HOURS PROCEDURE CT HEAD WITHOUT INTRAVENOUS CONTRAST: CLINICAL HISTORY: F/U [facility] TECHNIQUE: Axial computed tomography images of the head/brain without intravenous contrast. COMPARISON: CT\TX\SR - CT BRAIN WO CON - 12/12/2019 12:50 PM [employer] V[employer]OR FINDINGS: BRAIN: Overall unchanged heterogeneous appearance of the right parieto-occipital and posterior tempor al lobes status post recent surgery. Unchanged mass-like density centered within the medial right occ ipital lobe measuring up to 4 cm, with surrounding vasogenic edema. Some suggestion of subarachnoid hemorrhage within the sulci along the inferior aspect of the right occipital lobe, unchanged. Unchan ged dural thickening underlying the craniotomy, without evidence of increasing or new subdural hemorr dee. No foci of new hemorrhage from prior. No midline shift or significant mass-effect or signific ant change in the intracranial structures from recent comparison. VENTRICLES: Stable size of the ventricles. Preserved basal cisterns. Similar sulcal effacement of th e right parieto-occipital lobes, likely post surgical swelling. ORBITS: The orbits are unremarkable. SINUSES AND MASTOIDS: Polypoid mucosal thickening versus mucus retention cysts within the lower maxil nalini sinuses. The mastoid air cells are clear. SOFT TISSUES: Overlying the right craniotomy, there are skin closure ida. There are discrete sup erficial fluid collection. BONES: Stable postsurgical changes from right-sided craniotomy. IMPRESSION: Overall, no significant change in intracranial findings from short interval comparison, without evide nce of significant increasing mass-effect, new or progressive intracranial hemorrhage. Stable findin gs as detailed. ELECTRONICALLY SIGNED BY: Kaleb Gary MD Dec 13, 2019 4:39:48 AM [employer] VENDOR This report is intended for review by the ordering physician only, in accordance of law. If you recei ve this report in error, please call [facility] at [phone]. FINAL REPORT EMERGENT AFTER HOURS CT BRAIN WITHOUT CONTRAST: COMPARISON: 12/12/2019 FINDINGS/IMPRESSION: I agree with the findings and impression given in the preliminary report per the [facility] bebeto crandall. Stable exam. CODE QA
[2019-12-13] MEDS ORDERED: INSULIN DETEMIR 8 UNIT SQ SCH (09:00)
[2019-12-13] MEDS ORDERED: Non-Formulary Item 1 EACH (Ranitidine Hcl [Ranitidine Hcl] 150 MG) PO SCH (09:00)
[2019-12-13] MEDS ORDERED: Glucosamine/D3/Boswellia Serra [Osteo Bi-Flex Tablet] PO SCH (09:00)
[2019-12-13] MEDS: Lisinopril 20 MG TAB PO SCH (09:59)
[2019-12-13] MEDS: Carvedilol 6.25 MG TAB PO SCH ×2 (09:59→21:00)
[2019-12-13] MEDS: levETIRAcetam 500 MG TAB PO SCH ×2 (09:59→21:00)
[2019-12-13] MEDS: Insulin Glargine 8 UNITS in Pre-Filled Syringe 1 EACH SC SCH (10:25)
[2019-12-13] MEDS: Citalopram 10 MG TAB PO SCH (10:29)
[2019-12-13] MEDS: Furosemide 40 MG TAB PO SCH (10:29)
[2019-12-13] MEDS: Fluticasone Propionate Nasal Spray 16 gm Bottle NASAL SCH (10:29)
[2019-12-13] MEDS: Polyethylene Glycol 3350 17 GM Packet PO SCH (10:30)
[2019-12-13] MEDS: Pantoprazole 40 MG VIAL IVP SCH (10:30)
[2019-12-13] MEDS: Multivitamin W/ Minerals 1 TAB PO SCH (10:30)
[2019-12-13] MEDS: Nystatin 500,000 UNITS/5 ML UDCUP SSW SCH ×3 (10:30→22:53)
[2019-12-13] MEDS: Loratadine 10 MG TAB PO SCH (10:30)
[2019-12-13] MEDS: Ubidecarenone 50 MG CAP PO SCH (10:31)
[2019-12-13] MEDS: Sodium Chloride 1 GM TAB PO SCH ×2 (10:31→22:53)
--- NOTE | 2019-12-13 12:38 | PRG ---
DATE OF SERVICE: 12/13/2019 Ms. Valero was unfortunately readmitted for hypoxemia, hypotension, and failure to thrive. CTA of the chest demonstrates bilateral segmental pulmonary emboli. We have started her on intravenous heparin without a bolus. Her PTT this morning is 62. Our goal is going to be 50-70 and likely eventually 70-80. Head CT yesterday and today is negative for bleed, but unfortunately she has increased edema and a new glioblastoma multifocal lesion in the right parietal region, this is remote from where I had just taken out the other one via a 6 cm right temporal lobectomy just 2 weeks ago. Neurologically, she is alert. She is moving all extremities, but she admittedly appears as if she is ready to not fight this anymore. It is truly unfortunate as we obtained an excellent resection with her temporal lobectomy just 2 weeks ago, but this is a highly malignant process. She and her family understand. She also tells me that she really does not want to continue to fight it and wants to pursue comfort care measures likely, but she will discuss with her family. At this point, we will continue heparin and Decadron, but there is no role for any further surgical treatment and obviously no role for adjuvant therapy. Her wound is otherwise healing well. Job ID: [id number]
[2019-12-13 13:09] LABS: PTT 176.2 SEC (22.9-36.1)
--- NOTE | 2019-12-13 16:21 | PDOC.EVN ---
Event Note - Event Note Event Note: Mrs. Valero, , and 3 sons met today to further discuss goals of care. She has not wavered in her decision to stop all care including treatment for malignancy and pulmonary embolisms. I spoke with her family in length concerning palliative care and hospice. Ultimately, her decision is to pursue in hospice and her family eventually accepted this as the plan of care in support of their , mother. At this time will place consultation for inpatient hospice. Pierce Bashir, 12/13/19
--- NOTE | 2019-12-13 16:23 | CON ---
DATE OF CONSULTATION: 12/13/2019 TIME SPENT: This was 50 minutes of time, of that time greater than 50% spent with the patient and/or the patient's unit in the hospital. REASON FOR CONSULTATION: Pulmonary embolism. HISTORY OF PRESENT ILLNESS: This is a 79-year-old female, who had a recent resection for a glioblastoma multiforme. She was sent to [facility] where she has been rehabilitating. She developed shortness of breath and hypoxia yesterday. She was sent to the ER here. She had CT pulmonary angiogram which showed bilateral small pulmonary emboli. Additionally, the tumor has come back. The patient says that she wants hospice care and does not want anything done. PAST MEDICAL HISTORY: 1. Glioblastoma. 2. Depression. PAST SURGICAL HISTORY: Glioblastoma resection. FAMILY HISTORY: Unremarkable. SOCIAL HISTORY: Nonsmoker. Does not consume alcohol. Does not use illicit drugs. Lives near [place]. MEDICATIONS: 1. Aspirin. 2. Carvedilol. 3. Fluticasone. 4. Claritin. 5. Celexa. 6. Dexamethasone. 7. Furosemide. 8. Insulin. 9. Lisinopril. 10. Methylphenidate. 11. Pravastatin. 12. Ranitidine. 13. Ranolazine. 14. Coenzyme Q10. 15. Levetiracetam. REVIEW OF SYSTEMS: Remarkable for headache, lethargy, shortness of breath. PHYSICAL EXAMINATION: VITAL SIGNS: Pulse 72, blood pressure 140/76, O2 saturation 94%, respiratory rate 13. HEENT: Unremarkable. NECK: No adenopathy or JVD. LUNGS: Clear anteriorly. CARDIOVASCULAR: S1 and S2. Regular. ABDOMEN: Soft. EXTREMITIES: No edema. LABORATORY DATA: White blood cell count 13.6, hematocrit 29.2, platelet count 120. Sodium 133, potassium 4, chloride 102, CO2 of 24, BUN 27, creatinine 0.5, glucose 184. IMAGING STUDIES: I reviewed the CT scan personally. She is also noted to have elevated white blood cell count in her urine. ASSESSMENT: 1. Pulmonary embolism. 2. Glioblastoma multiforme, now inoperable. RECOMMENDATIONS: This is a very difficult situation. The patient basically wants to go on hospice care. I think one can make the argument that it is not even necessary to treat the pulmonary embolism as the patient's prognosis from the brain tumor is horrible. She also runs a risk of bleeding from the anticoagulant. Her life span is so short, so I do not think an IVC filter would be indicated either. I would recommend not treating this and just making her comfortable. Job ID: [id number]
[2019-12-13] MEDS: Pravastatin Sodium 20 MG TAB PO SCH (21:01)
[2019-12-13] MEDS: cefTRIAXone\\ROCEPHIN 1 GM in Sodium Chloride 0.9% 100 ML IVPB SCH (21:07)
[2019-12-14] MEDS: Dexamethasone 4 MG in Sodium Chloride 0.9% 50 ML IVPB SCH ×5 (00:24→23:46)
--- NOTE | 2019-12-14 04:44 | PDOC.FM ---
- Subjective Subjective: Patient was resting comfortably in bed at the time of evaluation. She denied any acute overnight events, and denied CP or SOB specifically. The current plan of care was discussed, to include ongoing coordination with Case Management and Palliative Care and eventual placement in In-Patient Hospice. Her primary goals today are "to rest and stay warm." - Objective Vital Signs & Weight: Vital Signs (12 hours) Temp BP Pulse Ox 12/14/19 00:00 98.8 F 12/13/19 21:00 99.2 F 137/72 12/13/19 20:00 94 L 12/13/19 19:04 94 L Weight Weight 87.3 kg Most Recent Monitor Data Heart Rate from ECG 68 NIBP 115/58 NIBP BP-Mean 77 Respiration from ECG 17 SpO2 94 I&O: 12/12/19 12/13/19 12/14/19 06:59 06:59 06:59 Intake Total 559 555 Output Total 720 1200 Balance -161 -645 Result Diagrams: 12/13/19 01:50 12/13/19 01:50 Phys Exam - Physical Examination Constitutional: NAD HEENT: moist MMs, oral pharynx no lesions Neck: no JVD, supple Respiratory: no wheezing, no rales, no rhonchi, clear to auscultation bilateral Cardiovascular: RRR, no significant murmur, no rub Gastrointestinal: soft, non-tender, no distention, positive bowel sounds Musculoskeletal: no edema, pulses present Neurological: non-focal Psychiatric: normal affect, A&O x 3 Dx/Plan - Plan Plan: 79 y/o female with a PMH significant for recent GBM resection who presents with Hypoxia and Hypotension. Sepsis - resolved - UCx: Schroeder-sensitive Gm(-) Rods - s/p Cefepime and Rocephin in ED - transitioned to Ceftriaxone 1g daily - Strict I/O - s/p Amaya Replacement - straw colored urine noted during evaluation Pulmonary Embolism - 2/2 Malignant Embolism vs Post Surgical Complication - appears to have failed prophylactic Lovenox - Neurosurgery Consulted: Recommended Therapeutic Heparin per protocol, since DC 'd based on patient's wishes - Cardiopulmonary status appears stable at this time Brain Mass - Glioblastoma resection on Nov 27, noted to be malignant per pt - Residual LE weakness and mental status changes per - Scheduled to follow up with onc for possible radiation, yet to be determined - Neurosurgery Consulted: Head CT notes new mass, non-operable. Lung Mass - Seen on CTA Chest - Previously noted, patient and aware - Outpatient PET scan scheduled for next week Hyponatremia, resolved - Na: 135 on 12/14/19 - Likely 2/2 to poor PO intake - Encouraged increased PO, consider dietary consult Depression - Increased post operatively - Will continue recently started citalopram - Palliative care consulted Likely Hypertension/CHF - did not note hx of these but suspected based on home rx - Will resume home rx for now and confirm medical hx IVF: SL VTE: None Diet: Regular Code: Full - Will Investigate w/ Family Dispo: Patient currently stable on the ICU. Continue IV ABx as per above and consider transition to PO prior to transfer to In-Patient Hospice. Coordinate with Case Management and Palliative Care as required. Expected LOS < 48 Addendum - Attending - Attending Attestation Date/Time: 12/14/19 2013 I personally evaluated the patient and discussed the management with Dr. Toro. I agree with the History, Examination, Assessment and Plan documented above with any addition or exceptions noted below. Patient reiterated to me this morning that she wants hospice care. Hospice will eval patient this afternoon. Will try to de-escalate unnecessary meds, statin, etc. F/u with family meeting this afternoon.
--- NOTE | 2019-12-14 08:51 | PRG ---
DATE OF SERVICE: 12/14/2019 SUBJECTIVE: She is comfortable, just complains of being cold. OBJECTIVE: VITAL SIGNS: Temperature 98.7, pulse 67, blood pressure 119/70, O2 saturation 95%. HEENT: Unremarkable. NECK: No adenopathy or JVD. CHEST: Clear. CARDIAC: S1, S2. Regular. ABDOMEN: Soft. ASSESSMENT: 1. Pulmonary embolism. 2. Glioblastoma multiforme. 3. Probable metastasis to the lung. PLAN: Comfort measures. Anticoagulation has been stopped. There is no necessity treating the pulmonary embolism or working up the lung tumor further with the PET scan. Hospice care is indicated. No further recommendations. We will sign off. Job ID: [id number]
[2019-12-14] MEDS: Sodium Chloride 1 GM TAB PO SCH ×2 (09:00→21:10)
[2019-12-14] MEDS: Multivitamin W/ Minerals 1 TAB PO SCH (09:00)
[2019-12-14] MEDS: Nystatin 500,000 UNITS/5 ML UDCUP SSW SCH ×4 (09:00→21:12)
[2019-12-14] MEDS: Polyethylene Glycol 3350 17 GM Packet PO SCH (09:00)
[2019-12-14] MEDS: Carvedilol 6.25 MG TAB PO SCH ×2 (09:00→21:08)
[2019-12-14] MEDS: Citalopram 10 MG TAB PO SCH (09:00)
[2019-12-14] MEDS: Fluticasone Propionate Nasal Spray 16 gm Bottle NASAL SCH (09:00)
[2019-12-14] MEDS: Loratadine 10 MG TAB PO SCH (09:00)
[2019-12-14] MEDS: Lisinopril 20 MG TAB PO SCH (09:00)
[2019-12-14] MEDS: Ubidecarenone 50 MG CAP PO SCH (09:00)
[2019-12-14] MEDS: Insulin Glargine 8 UNITS in Pre-Filled Syringe 1 EACH SC SCH (10:22)
[2019-12-14] MEDS: Pantoprazole 40 MG VIAL IVP SCH (10:23)
[2019-12-14] MEDS: levETIRAcetam 500 MG TAB PO SCH ×2 (10:41→21:10)
[2019-12-14] MEDS: Furosemide 40 MG TAB PO SCH (10:42)
--- NOTE | 2019-12-14 12:42 | PDOC.EVN ---
Event Note - Event Note Event Note: On 12/14/2019 at 1230, a discussion was held between the [facility] [place] - Dr. Grupo Toro - and the patient, her and her son, about her long-term goals of care. The patient stated that she was "ready to " and that she wished to begin discontinuing multiple aspects of her medication regimen. The benefits of hospice care we discussed at length, and the patient's expressed continued desire for the patient to receive in-patient hospice care. Initially, the patient's stated that the patient wished to remain in [facility], but after discussing further became open to the idea of transferring to an in-patient facility due to the unknown length of stay required. Expect to reengage with all stakeholders about pathway forward following Hospice evaluation currently scheduled for later this afternoon.
--- NOTE | 2019-12-14 15:48 | PRG ---
DATE OF SERVICE: 12/14/2019 This is Jhony Marc PA-C dictating a report for Adam Blanchard MD. Postoperative recheck Ms. Valero is now more than two weeks postop having undergone right temporal craniotomy for tumor resection consistent with GBM. Tumor unfortunately has been so aggressive that she has a new lesion in the right occipital lobe. We had a long discussion with the patient and her family and they also had a long discussion with our family medicine colleagues. So, the patient would like to transition to comfort care and inpatient hospice. Yesterday, her heparin was stopped and again she is transitioning to comfort care. On physical examination, the patient appears to be fatigued, but she awakens easily. She is minimally verbal. She follows commands in all 4 extremities. We have removed her cranial ida. At this point, we will do as the patient and family wishes and our medical colleagues are helping as well as Palliative Care are helping to transition the patient to hospice. We will follow along. Job ID: [id number]
[2019-12-14 18:15] VITALS: BMI 33.0
[2019-12-14] MEDS: Pravastatin Sodium 20 MG TAB PO SCH (21:08)
[2019-12-14] MEDS: cefTRIAXone\\ROCEPHIN 1 GM in Sodium Chloride 0.9% 100 ML IVPB SCH (22:39)
--- NOTE | 2019-12-15 05:08 | PDOC.FM ---
- Subjective Subjective: Patient was resting comfortably in her hospital bed at the time of evaluation - her family was not present. She denied any acute overnight events, aside from feeling slightly cold. Her current plan of care was discussed, and the option of potentially being DC'd to a correction with hospice care was discussed since she did not meet in-patient hospice requirements or [facility] hospice requirements. She was amenable to the idea, but wanted to discuss further with her family. - Objective Vital Signs & Weight: Vital Signs (12 hours) Temp Pulse Resp BP BP Pulse Ox 12/15/19 03:59 99.1 F 72 16 146/67 H 93 L 12/14/19 23:49 98.5 F 72 16 118/62 93 L 12/14/19 21:08 136/72 12/14/19 20:00 98.8 F 77 16 136/72 96 Weight Admit Weight 87.09 kg Weight 87.3 kg Most Recent Monitor Data Heart Rate from ECG 97 NIBP 114/73 NIBP BP-Mean 86 Respiration from ECG 20 SpO2 91 I&O: 12/13/19 12/14/19 12/15/19 06:59 06:59 06:59 Intake Total 559 695 633 Output Total 720 1335 1150 Balance -161 -640 -517 Result Diagrams: 12/13/19 01:50 12/13/19 01:50 Phys Exam - Physical Examination Constitutional: NAD HEENT: moist MMs, sclera anicteric, oral pharynx no lesions Neck: supple, full ROM Respiratory: no wheezing, no rales, no rhonchi, clear to auscultation bilateral Cardiovascular: RRR, no significant murmur, no rub Gastrointestinal: soft, non-tender, no distention Musculoskeletal: no edema, pulses present Neurological: non-focal Dx/Plan - Plan Plan: 79 y/o female with a PMH significant for recent GBM resection who presents with Hypoxia and Hypotension. Sepsis 2/2 to CAUTI - UCx: Schroeder-sensitive Gm(-) Rods - s/p Cefepime and Rocephin in ED - transitioned to Ceftriaxone 1g daily - will treat for 7 - 14 days - Strict I/O - s/p Amaya Replacement - consider changing to We[employer] Bag for patient comfort Pulmonary Embolism - 2/2 Malignant Embolism vs Post Surgical Complication - appears to have failed prophylactic Lovenox - Neurosurgery Consulted: Recommended Therapeutic Heparin per protocol, since DC 'd based on patient's wishes - Cardiopulmonary status appears stable at this time w/o evidence of respiratory compromise Brain Mass - Glioblastoma resection on Nov 27, noted to be malignant per Patient - Residual LE weakness and mental status changes, per - Neurosurgery Consulted: Head CT notes new mass - non-operable Lung Mass - Seen on CTA Chest - Previously noted, patient and aware - Outpatient PET scan scheduled for next week - since cancelled Hyponatremia, resolved - Na: 135 on 12/14/19 - Likely 2/2 to poor PO intake - Encouraged increased PO, consider dietary consult - NaCl 1 gm PO BID - will consider DC Depression - Increased post operatively - No evidence of SI or HI based on nursing reports - Will continue recently started Citalopram - Palliative care consulted Likely Hypertension/CHF - did not note hx of these but suspected based on home medications - Will resume select home medications for now in order to promote patient comfort IVF: SL VTE: None Diet: Regular - Patient currently not Eating Code: DNR - Will Confirm Documentation w/ Nursing Staff Dispo: Patient currently stable on the [place] [facility] but does not meeting criteria for Inpatient Hospice of [facility] Hospice - does not wish to take patient "home to ." Will continue IV ABx as per above and consider transition to PO. Will continue to adjust medication regimen based on patients wishes and seek reevaluation for In-Patient Hospice in 24-48H. Coordinate with Case Management and Palliative Care as required. Expected LOS < 48 Addendum - Attending - Attending Attestation Date/Time: 12/15/19 9738 I personally evaluated the patient and discussed the management with Dr. Toro. I agree with the History, Examination, Assessment and Plan documented above with any addition or exceptions noted below. We had a long discussion with the patient's and son this morning. The states "nobody wants her," in regards to her being denied for inpatient hospice services. I discussed what the qualifications were for this and that she did not meet them at this time. He reiterates he does not want to take her home. We also discussed correction vs swing bed and the cost that can be incurred with these options. He voiced his frustration with the situation. Case management has been in contact with [facility] for an assisted living room that is affordable and that the patient can receive hospice care. They will present this option to the patient.
[2019-12-15] MEDS: Dexamethasone 4 MG in Sodium Chloride 0.9% 50 ML IVPB SCH ×2 (05:32→11:10)
--- NOTE | 2019-12-15 08:54 | PRG ---
DATE OF SERVICE: 12/15/2019 This is Jhony Marc PA-C dictating a report for Adam Blanchard MD. Ms. Valero is hospital day #3 having been diagnosed with a new right occipital lobe brain tumor. Decision was made to transfer the patient to comfort care and inpatient hospice. Neurologically, the patient remains largely nonverbal. She denies headache. She states she is warm enough today. She follows commands in all extremities and again is largely nonverbal but will answer yes or no questions. She prefers to keep her eyes closed for the exam. At this point, care has been withdraw in regard to her pulmonary embolism. She remains on steroids. Neurosurgery will intermittently follow the patient, may transition to inpatient hospice or home with hospice care, whatever is appropriate. Job ID: [id number]
[2019-12-15] MEDS: Carvedilol 6.25 MG TAB PO SCH ×2 (08:57→21:04)
[2019-12-15] MEDS: Citalopram 10 MG TAB PO SCH (08:57)
[2019-12-15] MEDS: Insulin Glargine 8 UNITS in Pre-Filled Syringe 1 EACH SC SCH (08:58)
[2019-12-15] MEDS: Furosemide 40 MG TAB PO SCH (08:58)
[2019-12-15] MEDS: levETIRAcetam 500 MG TAB PO SCH ×2 (08:59→21:07)
[2019-12-15] MEDS: Lisinopril 20 MG TAB PO SCH (08:59)
[2019-12-15] MEDS: Multivitamin W/ Minerals 1 TAB PO SCH (09:00)
[2019-12-15] MEDS: Loratadine 10 MG TAB PO SCH (09:00)
[2019-12-15] MEDS: Pantoprazole 40 MG VIAL IVP SCH (09:01)
[2019-12-15] MEDS: Polyethylene Glycol 3350 17 GM Packet PO SCH (09:01)
[2019-12-15] MEDS: Sodium Chloride 1 GM TAB PO SCH ×2 (09:11→21:05)
[2019-12-15] MEDS: Ubidecarenone 50 MG CAP PO SCH (09:12)
[2019-12-15] MEDS: Nystatin 500,000 UNITS/5 ML UDCUP SSW SCH ×4 (09:12→21:09)
[2019-12-15] MEDS: Fluticasone Propionate Nasal Spray 16 gm Bottle NASAL SCH (10:56)
[2019-12-15] MEDS: Dexamethasone 4 MG TAB PO SCH (17:00)
[2019-12-15] MEDS: Pravastatin Sodium 20 MG TAB PO SCH (21:05)
[2019-12-15] MEDS: cefTRIAXone\\ROCEPHIN 1 GM in Sodium Chloride 0.9% 100 ML IVPB SCH (21:08)
[2019-12-15] MEDS ORDERED: Dextrose 50% Abboject 50 ML SYRINGE SLOW IVP PRN (22:11)
[2019-12-15] MEDS ORDERED: Dextrose 5% in Water 1,000 ML IV PRN (22:11)
[2019-12-15] MEDS: HumaLOG 300 UNITS/3 ML VIAL SC PRN (22:31)
[2019-12-16] MEDS: Dexamethasone 4 MG TAB PO SCH ×3 (00:03→12:37)
--- NOTE | 2019-12-16 05:13 | PDOC.FM ---
- Subjective Subjective: Patient was resting comfortably in her bed at the time of evaluation. She denied being in any pain or experiencing any SOB, and stated that she felt warm enough with additional blankets in her hospital room. Her plan of care was discussed, with a transfer to [facility] under the care of [facility] likely within the next 24H. Patient was amenable to this plan and did not have any additional questions or concerns. - Objective Vital Signs & Weight: Vital Signs (12 hours) Temp Pulse Resp BP BP Pulse Ox 12/15/19 21:04 129/73 12/15/19 19:17 98.8 F 88 16 129/78 93 L Weight Admit Weight 87.09 kg Weight 87.3 kg Most Recent Monitor Data Heart Rate from ECG 97 NIBP 114/73 NIBP BP-Mean 86 Respiration from ECG 20 SpO2 91 I&O: 12/14/19 12/15/19 12/16/19 06:59 06:59 06:59 Intake Total 695 793 910 Output Total 1335 1550 1550 Balance -640 -757 -640 Result Diagrams: 12/13/19 01:50 12/13/19 01:50 Phys Exam - Physical Examination Constitutional: NAD HEENT: moist MMs, oral pharynx no lesions Neck: supple, full ROM Respiratory: no wheezing, no rales, no rhonchi, clear to auscultation bilateral Cardiovascular: RRR, no significant murmur, no rub Gastrointestinal: soft, non-tender, no distention Neurological: non-focal, normal sensation Psychiatric: normal affect, A&O x 3 Skin: no rash Dx/Plan - Plan Plan: 79 y/o female with a PMH significant for recent GBM resection who presents with Hypoxia and Hypotension. Sepsis 2/2 to CAUTI - UCx: Schroeder-sensitive Gm(-) Rods - s/p Cefepime and Rocephin in ED - transitioned to Ceftriaxone 1g daily - will treat for 7 - 14 days - Plan to transition to PO Bactrim DS 1 Tab BID for 7 Days prior to transfer - Strict I/O - can DC prior to transfer - s/p Amaya Replacement - consider changing to PureWic for patient comfort Pulmonary Embolism - 2/2 Malignant Embolism vs Post Surgical Complication - appears to have failed prophylactic Lovenox - Neurosurgery Consulted: Recommended Therapeutic Heparin per protocol - since DC'd based on patient's wishes - Cardiopulmonary status appears stable at this time w/o evidence of respiratory compromise Brain Mass - Glioblastoma resection on 11/27/19, noted to be malignant per Patient - Residual LE weakness and mental status changes, per - Neurosurgery Consulted: Head CT notes new mass - non-operable Lung Mass - Seen on CTA Chest - Previously noted, patient and aware - Outpatient PET scan scheduled for next week - since cancelled Hyponatremia, resolved - Na: 135 on 12/14/19 - Likely 2/2 to poor PO intake - Encouraged increased PO, consider dietary consult Depression - Increased post operatively - No evidence of SI or HI based on nursing reports - Will continue recently started Citalopram - Palliative care consulted Likely Hypertension/CHF - did not note hx of these but suspected based on home medications - Will resume select home medications for now in order to promote patient comfort IVF: SL VTE: None Diet: Regular - Patient currently not Eating Code: DNR Dispo: Patient currently stable on the Oncology Floor but does not meet criteria for Inpatient Hospice or [facility]. Case Management consulted and will assist with transfer to [facility] w/ [facility] later today. Will transition IV ABx to PO ABx as per above and will tailor medication regimen based on patient comfort and Oncology recs. Coordinate with Case Management as required. Expected LOS < 24H. Addendum - Attending - Attending Attestation Date/Time: 12/16/192051 I personally evaluated the patient and discussed the management with Dr. Toro. I agree with the History, Examination, Assessment and Plan documented above with any addition or exceptions noted below. The patient is stable for discharge. OOH-DNR for completed. Will d/c to [facility] with hospice.
[2019-12-16] MEDS: HumaLOG 300 UNITS/3 ML VIAL SC PRN (06:14)
[2019-12-16] MEDS: Fluticasone Propionate Nasal Spray 16 gm Bottle NASAL SCH (08:38)
[2019-12-16] MEDS: Polyethylene Glycol 3350 17 GM Packet PO SCH (08:39)
[2019-12-16] MEDS: Pantoprazole 40 MG VIAL IVP SCH (08:39)
[2019-12-16] MEDS: Sodium Chloride 1 GM TAB PO SCH (08:40)
[2019-12-16] MEDS: Lisinopril 20 MG TAB PO SCH (08:40)
[2019-12-16] MEDS: levETIRAcetam 500 MG TAB PO SCH (08:41)
[2019-12-16] MEDS: Ubidecarenone 50 MG CAP PO SCH (08:41)
[2019-12-16] MEDS: Nystatin 500,000 UNITS/5 ML UDCUP SSW SCH ×2 (08:42→16:08)
[2019-12-16] MEDS: Multivitamin W/ Minerals 1 TAB PO SCH (08:42)
[2019-12-16] MEDS: Carvedilol 6.25 MG TAB PO SCH (08:42)
[2019-12-16] MEDS: Citalopram 10 MG TAB PO SCH (08:42)
[2019-12-16] MEDS: Loratadine 10 MG TAB PO SCH (08:42)
[2019-12-16] MEDS: Furosemide 40 MG TAB PO SCH (08:42)
[2019-12-16] MEDS ORDERED: Insulin Glargine 10 UNITS in Pre-Filled Syringe 1 EACH SC SCH (09:00)
[2019-12-16 14:28] VITALS: BP 129/72; TEMP 98.3
--- NOTE | 2019-12-17 05:52 | DIS ---
DATE OF ADMISSION: 12/12/2019 DATE OF DISCHARGE: 12/16/2019 RESIDENT: Grupo Toro MD ADMITTING ATTENDING: Cindy Garcia MD DISCHARGE ATTENDING: Leeann Farrar MD. CONSULTS: 1. Jhony Marc, Oncology. 2. Dr. Adam Blanchard, Neurosurgery. PROCEDURES: Chest x-ray with no evidence of acute cardiopulmonary disease. CT brain without contrast demonstrating postsurgical changes at the right calvarium with likely residual mass in the right parietal lobe. CTA of the chest with contrast demonstrating small bilateral pulmonary emboli. Spiculated left upper lobe nodule. CT brain with and without contrast consistent with the original CT brain described earlier. PRIMARY DIAGNOSIS: Sepsis, secondary to catheter-associated urinary tract infection. SECONDARY DIAGNOSES: Recurrent glioblastoma multiforme, bilateral pulmonary embolisms causing acute hypoxic respiratory failure, hyponatremia, depression, hypertension, and history of seizures. DISCHARGE MEDICATIONS: 1. Bactrim Double Strength one tab p.o. b.i.d. for 7 days. 2. Dexamethasone 4 mg p.o. q.6 hours for one day. DISCONTINUED MEDICATIONS: 1. Acetaminophen 650 mg p.o. q.4 hours p.r.n. 2. Carvedilol 12.5 mg p.o. b.i.d. 3. Ceftriaxone 1 g q.24 hours. 4. Citalopram 10 mg p.o. daily. 5. Coenzyme Q 100 mg p.o. daily. 6. Fluticasone nasal spray. 7. Lasix 40 mg p.o. daily. 8. Insulin glargine 10 units daily. 9. Insulin human lispro mild sliding scale. 10. Multivitamin one tab p.o. daily. 11. Keppra 1500 mg p.o. b.i.d. 12. Lisinopril 40 mg p.o. daily. 13. Loratadine 10 mg p.o. daily. 14. Methylphenidate 5 mg p.o. daily. 15. Zofran 4 mg p.o. q.6 hours. 16. Protonix 40 mg IV daily. 17. Polyethylene glycol 17 g p.o. daily. 18. Pravastatin 10 mg p.o. daily. 19. Ranolazine 1000 mg p.o. b.i.d. 20. Sodium chloride tablets 2 g p.o. b.i.d. HOSPITAL COURSE: The patient is a 79-year-old female with past medical history significant for recent surgical resection of glioblastoma on November 27, 2019, who presented from [facility] for hypoxia and labile blood pressures noted there by the staff, that morning, per the who was present during the time of evaluation, her vitals were noted to be abnormal and the rehab staff, Grupo, they could not handle her appropriately and as such, she was transferred to the ED for further evaluation. Upon arrival, the patient had her supplemental oxygen rapidly weaned to room air with normal saturations, her blood pressure remained stable. The patient denied any significant symptoms including chills, fever, cough, or abdominal pain. The patient had been previously receiving PT, OT, and rehab, and her states that she has not been progressing well and had not regained function of her lower extremities to ambulate since her operation. Her was also concerned about her ongoing depression, so she often talked about the end of life. The patient has been denied any attempts on her life resulting in abnormal vitals this a.m. While in the ED, she received cefepime and Rocephin via IV. Initial workup revealed urine culture significant for gram-negative rods. Her Amaya was subsequently replaced. Bilateral pulmonary emboli were noted, and Neurosurgery was consulted, who initiated therapeutic heparin per protocol. Upon further evaluation, Neurosurgery noted that there was increased edema and a new glioblastoma multifocal lesion in the right parietal region that was remote from the previous resection just 2 weeks prior. Neurosurgery noted that she was neurologically alert, moving all extremities, but admittedly appears that "she is not ready to fight this anymore." The patient and her family were informed that this new lesion was not surgically resectable. As such, they require discontinuation of all additional medications to include anticoagulation for her pulmonary emboli. She was subsequently admitted to the Oncology floor where she wished to pursue hospice care after consulting Case Management. Hospice care was coordinated with [facility], and she was subsequently transferred to [facility] with transition to p.o. antibiotics for her after mentioned catheter-associated urinary tract infection. Prior to discharge, her vital signs were recorded as temperature 98.3, pulse 81, blood pressure 129/72, respirations 16 per minute, and oxygen saturation is 93% on room air. Lab values revealed a white blood cell count of 13.6, hemoglobin 10.2, hematocrit 29.2, and platelet count 120. Coagulation panel revealed a PT of 14.7, trending up to 14.9, INR consistent at 1.2 and APTT at 19.7 with eventual increased of 176.2. Chem panel revealed a sodium of 133, potassium 4.0, chloride 102, carbon dioxide 24, BUN 27, creatinine 0.56, and glucose 184. Procalcitonin was 0.02. Urinalysis demonstrated no ketones with trace blood, +1 urine nitrites, no bilirubin, normal amounts of urobilinogen, abnormal amounts of leukocyte esterase, urine red blood cells, urine white blood cells, no squamous epithelial cells, +1 amorphous crystals, +2 bacteria, and no hyaline casts. Toxicology screen was negative with the exception of less than 8.0 L salicylate and less than 6.0 L acetaminophen. DISPOSITION: Guarded. DISCHARGE INSTRUCTIONS: 1. Location: Outside facility, [facility] under the care of [facility]. 2. Diet: No restrictions. 3. Activity: No restrictions, likely would require ambulate with assist. 4. Followup: No followup is required at this time as the patient was placed on hospice care unless the family wishes to receive additional intervention for acute events. Otherwise, all were satisfied with their hospital stay and the care they received and their eventual transition to hospice. Job ID: [id number] [facility] CENTERShital
[2019-12-17] MEDS ORDERED: Dexamethasone 1 MG TAB PO SCH (18:00)
--- NOTE | 2019-12-17 22:14 | PQF ---
EDUARDO MEYERS RAE ANN MD [id number] CLINICAL DOCUMENTATION CLARIFICATION FORM: POST DISCHARGE Addendum to original discharge summary date: ____ Late entry note date: __ DATE:12/17/2019 ATTN: WANG AVINA MD Please exercise your independent, professional judgment in responding to the clarification form. Clinical indicators are provided on the bottom of this form for your review Please check appropriate box(s): [ ] Pulmonary Embolism due to post surgical complication [ X ] Pulmonary Embolism due to malignant [ ] Other diagnosis [ ] Unable to determine For continuity of documentation, please document condition throughout progress notes and discharge summary. Thank You. CLINICAL INDICATORS - SIGNS / SYMPTOMS / LABS Pulmonary embolism 2/2 malignant embolism vs post surgical complication - Documented in H&P on 12/12 by Pretty Murguia MD Multiple risk factors including malignancy & immobilization since recent brain surgery. Confirmed on CTA obtained in ED-Documented in H&P on 12/12 by Pretty Murguia MD Hx Glioblastoma s/p resection w/ new brain mass, S/P Glioblastoma resection on 11/27/19 which was noted to be malignant per patient -Documented in H&P on by Pretty Murguia MD Bilateral Pulmonary embolisms causing acute hypoxic respiratory failure- Documented in Discharge summary on 12/16 by Muna Lombardo MD RISK FACTORS Multiple risk factors including malignancy & immobilization since recent brain surgery. Confirmed on CTA obtained in ED-Documented in H&P on 12/12 by Pretty Murguia MD S/P Glioblastoma resection on 11/27/19 which was noted to be malignant per patient -Documented in H&P on 12/12 by Pretty Murguia MD TREATMENT: Neurosurgery consulted & initiated therapeutic heparin per protocol w/ Q6H- Documented in H&P on 12/12 by Pretty Murguia MD Continue therapeutic heparin per protocol-Documented in family medicine progress note on 12/13 by Pierce Bashir DO [employer] Win[employer] (This form is maintained as a part of the permanent medical record) 2014 [employer]. All Rights Reserved [email or web address]
[2019-12-19] MEDS ORDERED: Dexamethasone 4 MG TAB PO SCH (18:00)
[2019-12-21] MEDS ORDERED: Dexamethasone 1 MG TAB PO SCH (18:00)
== END 2019-12-16 14:55 | disposition hospice, inpatient (51) | DRG 698 ==
LOC: ERS 11:02 → T4-B 13:36 → CCU 19:10 → ONC 12-14 17:12
PROVIDERS: ADMIT Family Medicine; ATTEND Family Medicine
DX: T83.511A Infection and inflammatory reaction due to indwelling urethral catheter, initial encounter (principal); A41.9 Sepsis, unspecified organism; I26.99 Other pulmonary embolism without acute cor pulmonale; J96.01 Acute respiratory failure with hypoxia; C79.9 Secondary malignant neoplasm of unspecified site; E87.1 Hypo-osmolality and hyponatremia; C71.9 Malignant neoplasm of brain, unspecified; B37.0 Candidal stomatitis; C78.00 Secondary malignant neoplasm of unspecified lung; Z66 Do not resuscitate; Z51.5 Encounter for palliative care; N39.0 Urinary tract infection, site not specified; F32.9 Major depressive disorder, single episode, unspecified; D64.9 Anemia, unspecified; D69.6 Thrombocytopenia, unspecified; R62.7 Adult failure to thrive; Z68.33 Body mass index [BMI] 33.0-33.9, adult
CPT/HCPCS: 36415; 36416; 51702; 70450; 71045; 71275; 80048; 80306; 80307; 81003; 81015; 82140; 83605; 83880; 84145; 85025; 85610; 85730; 87040; 87077; 87086; 87186; 87804; 93005; 96365; C9113; J0692; J0696; J1100; J1644; J1815; J3490; J8540; Q0162; Q9967